=== PATIENT | female | born 1965 | race Caucasian/White ===

== ENCOUNTER 2017-03-22 12:32 | Emergency (ER) | payer SELFPAY ==
[~2017-03-22] VITALS: Ht 152.4 cm; Wt 99.8 kg
[~2017-03-22 12:32] MED LIST: MUPI22OI TP; TELM40T; TRAM50TA2 PO
--- OUTSIDE RECORDS SUMMARY | 2017-03-22 12:40 | XMS REPORT | Continuity of Care Document ---
Author Author [facility] Organization [facility] Address Unknown Phone Unavailable Allergies Active Description Code Type Severity Reaction Onset Reported/Identified Relationship to Patient Clinical Status Yes Sulfa (Sulfonamide Antibiotics) [id number] Drug Allergy Unknown N/A 2008 Medications There is no data. Problems Date Dx Coded Attending Type Code Diagnosis Diagnosed By 05/15/2010 Ot V16.0 05/15/2010 Ot V76.51 06/02/2015 Ot 729.5 06/02/2015 Ot 729.81 06/02/2015 DANIEL KNOTT Ot S60.511A ABRASION OF RIGHT HAND, INITIAL ENCOUNTE 06/02/2015 DANIEL KNOTT Ot S96.211A STRAIN OF INTRINSIC MSL/TND AT ANK/FT LE 06/02/2015 DANIEL KNOTT Ot W10.9XXA FALL (ON) (FROM) UNSPECIFIED STAIRS AND 06/02/2015 DANIEL KNOTT Ot Y99.8 OTHER EXTERNAL CAUSE STATUS 06/02/2015 DANIEL KNOTT Ot Z23 ENCOUNTER FOR IMMUNIZATION 06/02/2015 Ot 729.5 06/02/2015 Ot 729.81 06/04/2015 DANIEL KNOTT Ot S60.511A 06/04/2015 DANIEL KNOTT Ot S96.211A 06/04/2015 DANIEL KNOTT Ot W10.9XXA 06/04/2015 DANIEL KNOTT Ot Y99.8 06/04/2015 DANIEL KNOTT Ot Z23 06/19/2015 DANIEL KNOTT Ot S60.511A ABRASION OF RIGHT HAND, INITIAL ENCOUNTE 06/19/2015 DANIEL KNOTT Ot S96.211A STRAIN OF INTRINSIC MSL/TND AT ANK/FT LE 06/19/2015 DANIEL KNOTT Ot W10.9XXA FALL (ON) (FROM) UNSPECIFIED STAIRS AND 06/19/2015 DANIEL KNOTT Ot Y99.8 OTHER EXTERNAL CAUSE STATUS 06/19/2015 DANIEL KNOTT Ot Z23 ENCOUNTER FOR IMMUNIZATION Procedures There is no data. Results There is no data. Encounters ACCT No. Visit Date/Time Discharge Status Pt. Type Provider Facility Loc./Unit Complaint [id number] 06/02/2015 18:33:00 06/02/2015 21:11:00 DIS Emergency DANIEL KNOTT [facility] [id number] 07/03/2010 14:21:00 Document Registration [id number] 05/15/2010 06:40:00 Document Registration
--- NOTE | 2017-03-22 14:29 | ED General ---
General Chief Complaint: Fever-Adult/Adol Stated Complaint: COUGH/FEVER HEADACHE Nursing Triage Note: PATIENT STATES SHE HAS HAD A FEVER X4 DAYS WITH A HEADACHE, COUGHING. Nursing Sepsis Screen: Possible Sepsis Risk Source of Information: Patient Exam Limitations: No Limitations History of Present Illness Date Seen by Provider: Mar 22, 2017 Time Seen by Provider: 12:54 Initial Comments This 52 woman presents to the emergency room with flulike syndrome including headache, facial pain, cough, fever, neck and body soreness, scalp tenderness, and generally feeling ill. She has been using some efav-ipp-wdymmhu medications but still feels ill. She has had symptoms for 4 days now. She denies any pain with inspiration or wheezing. She has hypertension and is notably hypertensive in the ER today. She acknowledges she needs to follow-up with her primary care provider to have medications reviewed. She does have a history of pneumonia and states this does not feel like pneumonia to her as she typically has chest discomfort with pneumonia. She denies nausea, vomiting, diarrhea, or constipation. Allergies and Home Medications Allergies Coded Allergies: Sulfa (Sulfonamide Antibiotics) (Verified Allergy, Unknown, 08/09/08) Home Medications Mupirocin 22 Gm Oint...g., 22 GM TP BID, #1 Ref 0 Prescribed by: DANIEL VAZ on 06/02/152058 Ondansetron 4 Mg Tab.rapdis, 4 MG SL Q4H PRN for NAUSEA/VOMITING-1ST LINE, #10 Prescribed by: EMILY JACOBSON on 03/22/17 1434 Tramadol HCl 50 Mg Tablet, 50 MG PO Q4H PRN for PAIN, #14 Ref 0 Prescribed by: DANIEL VAZ on 06/02/152054 Tramadol HCl 50 Mg Tablet, 50 MG PO QID PRN for PAIN-MODERATE TO SEVERE, #10 Prescribed by: EMILY JACOBSON on 03/22/17 1434 Constitutional: see HPI EENTM: see HPI Respiratory: see HPI Cardiovascular: see HPI Gastrointestinal: no symptoms reported Genitourinary: no symptoms reported : No Musculoskeletal: see HPI Psychiatric/Neurological: See HPI, Headache Hematologic/Lymphatic: No Symptoms Reported Immunological/Allergic: no symptoms reported Past Korxxfy-Jcotgj-Qexjrn Hx Patient Social History Alcohol Use: Denies Use Recreational Drug Use: No Smoking Status: Never a Smoker 2nd Hand Smoke Exposure: No Recent Foreign Travel: No Contact w/Someone Who Travel: No Recent Infectious Disease Expo: No Recent Hopitalizations: Yes Immunizations Up To Date Tetanus Booster (TDap): Unknown Surgeries History of Surgeries: Yes (uvulectomy, nasal surgery) Surgeries: Adenoidectomy, Section, Tonsillectomy Respiratory History of Respiratory Disorde: Yes Respiratory Disorders: Pneumonia, Sleep Apnea Cardiovascular History of Cardiac Disorders: Yes Cardiac Disorders: Hypertension Neurological History of Neurological Disord: No Reproductive System : No Hx Reproductive Disorders: Yes (OVARIAN CYSTS) Sexually Transmitted Disease: No Genitourinary History of Genitourinary Disor: No Gastrointestinal History of Gastrointestinal Di: No Musculoskeletal History of Musculoskeletal Dis: No Endocrine History of Endocrine Disorders: No HEENT History of HEENT Disorders: No Cancer History of Cancer: No Psychosocial History of Psychiatric Problem: Yes Blood Transfusions History of Blood Disorders: Yes Family Medical History Significant Family History: No Pertinent Family Hx Physical Exam Vital Signs Vital Sign - Last 12Hours 03/22/17 12:53 Temp 101.7 Pulse 93 Resp 20 B/P (MAP) 189/79 (115) Pulse Ox 95 O2 Delivery Room Air Capillary Refill : Less Than 3 Seconds General Appearance: No Apparent Distress, WD/WN, Obese HEENT: PERRL/EOMI, Normal ENT Inspection, Pharynx Normal, Other (absent uvula) Neck: Normal Inspection Respiratory: Lungs Clear, Normal Breath Sounds, No Accessory Muscle Use, No Respiratory Distress Cardiovascular: Regular Rate, Rhythm, No Edema, No Murmur Extremity: Normal Inspection Neurologic/Psychiatric: Alert, Oriented x3, No Motor/Sensory Deficits, Normal Mood/Affect, ms sql dba II-XII Norm as Tested Skin: Normal Color, Warm/Dry Progress/Results/Core Measures Suspected Sepsis Recent Fever Within 48 Hours: Yes Infection Criteria Present: Suspected New Infection New/Unexplained Altered Menta: No Sepsis Screen: Possible Sepsis Risk Sepsis Diagnosis: SIRS Temperature:101.7 Pulse: 93 Respiratory Rate: 20 Blood Pressure 189 /79 Mean: 115 Results/Orders Micro Results Microbiology 03/22/17 Influenza Types A,B Antigen (DENIA) - Final, Complete My Orders Orders - EMILY TOLEDO MD Influenza A And B Antigens (03/22/17 12:53) Tramadol Tablet (Ultram Tablet) (03/22/17 14:30) Vital Signs/I&O Capillary Refill : Less Than 3 Seconds Blood Pressure Mean: 115 Progress Note : Progress Note Patient tested positive for influenza A. Unfortunately, she is too far into this illness for Tamiflu to be of benefit. I discussed supportive care at home and encouraged follow-up for blood pressure management.patient did request something for headache. Tramadol was given. She declined Toradol stating it's not effective for her. She did also later state she has some nausea and Zofran as prescribed. Departure Impression Impression: Primary Impression: Influenza A Disposition: 01 HOME, SELF-CARE Condition: Improved Departure-Patient Inst. Decision time for Depature: 14:10 Referrals: [facility] CAMPA MD (PCP/Family) Primary Care Physician Patient Instructions: Flu, Adult (DC) Add. Discharge Instructions: Drink plenty of clear liquids. Gradually advance your diet with small quantities of bland food as tolerated. You may take ibuprofen up to 600 mg every 6 hours as needed for pain and/or Tylenol (acetaminophen) up to 1000 mg every 6 hours as needed for pain area and add Ultram for (tramadol) for pain not controlled by cfgl-rqd-pdqctyb medications. Use Zofran as prescribed if you have nausea or vomiting. Return to care if symptoms are not improving as expected or worsening. All discharge instructions reviewed with patient and/or family. Voiced understanding. Scripts Ondansetron (Zofran Odt) 4 Mg Tab.rapdis 4 MG SL Q4H Y for NAUSEA/VOMITING-1ST LINE, #10 TAB Prov: EMILY TOLEDO MD 03/22/17 Tramadol HCl (Ultram) 50 Mg Tablet 50 MG PO QID Y for PAIN-MODERATE TO SEVERE, #10 TAB Prov: EMILY TOLEDO MD 03/22/17 Work/School Note: Work Release Form Date Seen in the Emergency Department: Mar 22, 2017 Return to Work: Mar 24, 2017 Restrictions: Return-No Fever (24hrs) EMILY TOLEDO MD Mar 22, 2017 14:29
[2017-03-22] MEDS ORDERED: ONDA4TAB8 SL (14:34)
[2017-03-22] MEDS ORDERED: TRAM-42 PO (14:34)
[2017-03-22 14:41] VITALS: BP 175/94
== END 2017-03-22 14:41 | disposition home or self-care (01) ==
LOC: EDUNIT# 12:32 → ER 12:36
DX: J10.1 Influenza due to other identified influenza virus with other respiratory manifestations (principal); I10 Essential (primary) hypertension; Z88.2 Allergy status to sulfonamides; Z87.448 Personal history of other diseases of urinary system; Z87.59 Personal history of other complications of pregnancy, childbirth and the puerperium; Z90.89 Acquired absence of other organs
CPT/HCPCS: 87804; 99283